=== PATIENT | female | born 1940 | race Caucasian/White ===

== ENCOUNTER 2022-11-20 08:18 | Observation (INO) | payer MEDICARE, BC ==
[~2022-11-20] VITALS: Ht 165.1 cm; Wt 68.5 kg
[2022-11-20] MEDS ORDERED: ALPR.5 PO (09:06)
[2022-11-20] MEDS ORDERED: METO25ER PO (09:06)
[2022-11-20] MEDS ORDERED: MULVITA PO (09:07)
[2022-11-20 09:51] LABS: BASOPHILS ABSOLUTE AUTO 0.08 K/mm3 (0.00-0.23); BASOPHILS PERCENT AUTO 1 % (0-2); EOSINOPHILS ABSOLUTE AUTO 0.22 K/mm3 (0.00-0.68); EOSINOPHILS PERCENT AUTO 3 % (0-6); Hemoglobin 14.1 g/dL (11.5-16.0); IMMATURE GRAN ABSOLUTE AUTO 0.01 K/mm3 (0.00-0.10); IMMATURE GRAN PERCENT AUTO 0 % (0-1); LYMPHOCYTES ABSOLUTE AUTO 1.46 K/mm3 (0.84-5.20); LYMPHOCYTES PERCENT AUTO 18 % (21-46); MONOCYTES ABSOLUTE AUTO 0.65 K/mm3 (0.16-1.47); MONOCYTES PERCENT AUTO 8 % (4-13); Mean Corpuscular HGB 32.9 pg (26.0-34.0); Mean Corpuscular HGB Conc 34.4 g/dL (31.5-36.5); Mean Corpuscular Volume 96 fL (80-100); Mean Platelet Volume 10.2 fL (9.1-12.4); NEUTROPHILS ABSOLUTE AUTO 5.84 K/mm3 (1.96-9.15); NEUTROPHILS PERCENT AUTO 71 % (41-73); Platelet Count 332 K/mm3 (150-400); RDW Coefficient Variation 13.4 % (11.7-14.2); RDW Standard Deviation 47.6 fL (35.1-46.3); Red Blood Cell Count 4.28 M/mm3 (3.80-5.20); White Blood Cell Count 8.26 K/mm3 (4.00-11.30)
[2022-11-20 10:10] LABS: Albumin, Blood 3.4 g/dL (3.4-5.0); Albumin/Globulin Ratio 0.9 (0.8-1.8); Bilirubin, Total 0.9 mg/dL (0.1-1.0); Bun/Creatinine Ratio 25.2 (12.0-20.0); Calcium, Blood 8.9 mg/dL (8.5-10.1); Creatinine, Blood 1.07 mg/dL (0.40-1.00); Globulin, Blood 3.8 g/dL (2.2-4.0); Magnesium, Blood 2.1 mg/dL (1.6-2.4); Potassium, Blood 3.8 mmol/L (3.5-5.5); Total Protein, Blood 7.2 g/dL (6.4-8.2)
[2022-11-20 10:57] LABS: Influenza A, PCR NEGATIVE (NEGATIVE); Influenza B, PCR NEGATIVE (NEGATIVE); Resp Syncytial Virus, PCR NEGATIVE (NEGATIVE); SARS-Cov-2 (COVID-19) PCR, MMC NEGATIVE (NEGATIVE)
--- NOTE | 2022-11-20 16:29 | NUR ---
PATIENT ADMIT TO PCU 04. SISTER AND DAUGHTER PRESENT FOR ADMIT. ALERT AND ORIENTED X3-4. ANXIOUS. WEARING GLASSES, PERRLA. DENIES N/T. STATES SHE HAS FALLEN AT HOME. UPON ADMIT SATING 91% ON ROOM AIR. 2L O2 PLACED AND PATIENT SATING MID 90'S. LUNGS SOUNDING CLEAR AND CRACKLES IN BASES. DENIES COUGH. SOB WHEN UP WALKING TO BATHROOM. TELE SHOWING AFIB WITH HR 80-130'S. BP ELEVATED. PO CARDIAC MEDS GIVEN. DENIES CHEST PAIN/PRESSURE. PPP. MINIMAL EDEMA TO BLE. EATING AND VOIDING WNL. DENIES ABDOMINAL PAIN/NAUSEA. ORIENTED TO ROOM/UNIT/CALL LIGHT. BOLUS GIVEN PER EMAR. TROP DRAWN AND RESULTS CALLED TO KEVIN, PLAN FOR PATIENT TO BE NPO AT MIDNIGHT. PATIENT AND FAMILY UPDATED. ECHO RESULTS PENDING. WILL CONTINUE TO MONITOR.
--- NOTE | 2022-11-20 18:02 | NUR ---
SHIFT SUMMARY: NO ACUTE CAHNGES. REMAINS ON 2L NASAL CANNULA SATING MID 90'S. TELE SHOWING AFIB WITH HR 80-130'S. DENIES ANY PAINS. SOB WHEN UP TO BSC. IV LASIX GIVEN POST BOLUS. PATIENT EATING WNL. PLAN FOR NPO AT MIDNIGHT. BP REMAINS ELEVATED. CALL LIGHT IN REACH. CALLING FOR NEEDS.
[2022-11-21 04:10] LABS: Hematocrit 36.7 % (33.0-51.0); Hemoglobin 12.2 g/dL (11.5-16.0); Mean Corpuscular HGB 31.8 pg (26.0-34.0); Mean Corpuscular HGB Conc 33.2 g/dL (31.5-36.5); Mean Corpuscular Volume 96 fL (80-100); Mean Platelet Volume 10.4 fL (9.1-12.4); Platelet Count 298 K/mm3 (150-400); RDW Coefficient Variation 13.4 % (11.7-14.2); RDW Standard Deviation 47.6 fL (35.1-46.3); Red Blood Cell Count 3.84 M/mm3 (3.80-5.20)
[2022-11-21 04:28] LABS: Bun/Creatinine Ratio 27.5 (12.0-20.0); Calcium, Blood 8.3 mg/dL (8.5-10.1); Creatinine, Blood 0.98 mg/dL (0.40-1.00); Potassium, Blood 3.3 mmol/L (3.5-5.5)
--- NOTE | 2022-11-21 05:24 | NUR ---
Assumed care of pt at 1900. A/Ox4, with noted anxiety related to hospital stay. Some generalized weakness noted, SBA to BSC. Maintains over 92% on 1-2L NC. LS clear on top and moist crackles at bases b/l. SO. SR-ST on tele 90-120's w/BBB and PVC's. Denies any CP/pressure, VSS. Trace BLE edema. Diuresing well with good output (see I/O documentation). No acute changes, will report to dayshift RN.
[2022-11-21 07:48] LABS: CHOL/HDL RATIO 2.7; Cholesterol 145 mg/dL (50-200); HDL Cholesterol 54 mg/dL (>39); LDL/HDL RATIO 1.3; Low Density Lipoprotein Chol 69 mg/dL (0-110); Triglycerides 110 mg/dL (30-160); Very Low Density Lipoprot Chol 22 mg/dL (6-32)
[2022-11-21] MEDS ORDERED: ASPI81CH PO (12:23)
[2022-11-21] MEDS ORDERED: FURO20 PO (12:23)
[2022-11-21] MEDS ORDERED: HYDHCL25 PO (12:24)
[2022-11-21] MEDS ORDERED: LISI5 PO (12:24)
[2022-11-21] MEDS ORDERED: POTA10T PO (12:25)
--- NOTE | 2022-11-21 15:37 | NUR ---
DISCHARGE SUMMARY PATIENT ALERT AND ORIENTED AND SOMETIMES FORGETFUL. TOLERATING CARDIAC DIET AND ORAL LIQUIDS. VOIDING WELL. SALINE LOCKED. REPORTS WOB EASY AND NO DESATS NOTED WITH AMBULATION IN ROOM. OTHER VSS WITH NORMAL BP. DENIES CP. SISTER AND DAUGHTER IN ROOM ALL MORNING. DR BLANKENSHIP CONFERENCED WITH PATIENT AND FAMILY AND PLACED DISCHARGE ORDER. DISCHARGE EDUCATION GIVEN ON NEW MEDICATION, SIGNS AND SYMPTOMS TO RETURN TO ER, AND FOLLOW UP APPTS WIT PCP AND [facility] AT HOME IN [place]. IV DC'D WNL. PATIENT LEFT UNIT VIA WHEELCHAIR AT 1430 WITH FAMILY.
== END 2022-11-21 14:38 | disposition home or self-care (01) ==
LOC: ER 08:18 → ERHOLD 08:19 → PCU 08:19
PROVIDERS: Family Medicine; Nurse Practitioner Acute Care; Student in an Organized Health Care Education/Training Program; ADMIT Internal Medicine
DX: I11.0 Hypertensive heart disease with heart failure (principal); I50.21 Acute systolic (congestive) heart failure; J96.01 Acute respiratory failure with hypoxia; R77.8 Other specified abnormalities of plasma proteins; N17.9 Acute kidney failure, unspecified; I48.0 Paroxysmal atrial fibrillation; F41.9 Anxiety disorder, unspecified; Z91.14 Patient's other noncompliance with medication regimen; Z20.822 Contact with and (suspected) exposure to COVID-19
CPT/HCPCS: 0241U; 36415; 71046; 71260; 80048; 80053; 80061; 83036; 83735; 83880; 84443; 84484; 85025; 85027; 85379; 93005; 93010; 93306; 94760; 96372; 96374; 96376; 99285-25; A9270; G0378; J1650; J1940; J7040; Q9967